=== PATIENT | male | born 1955 | race Caucasian/White ===

== ENCOUNTER 2024-07-12 06:15 | Day surgery (SDC) | payer OTHER, SELFPAY ==
[2024-07-12 09:05] LABS: Glucose - Point of Care 147 mg/dl (70-99)
== END 2024-07-12 10:06 | disposition home or self-care (01) ==
LOC: GI 06:15
PROVIDERS: ATTENDING PHYSICIAN Internal Medicine
PROC: 0DB58ZX Excision of Esophagus, Via Natural or Artificial Opening Endoscopic, Diagnostic (ICD-10-PCS; 2024-07-12)
PROC: 0D758ZZ Dilation of Esophagus, Via Natural or Artificial Opening Endoscopic (ICD-10-PCS; 2024-07-12)
PROC: 0DB68ZX Excision of Stomach, Via Natural or Artificial Opening Endoscopic, Diagnostic (ICD-10-PCS; 2024-07-12)
DX: K22.2 Esophageal obstruction (principal); K29.70 Gastritis, unspecified, without bleeding
CPT/HCPCS: 43239; 43249; 88305; 82962; 88342

== ENCOUNTER → 2024-10-31 08:58 | Outpatient (REF) | payer OTHER, SELFPAY | LOC: HWRAD 08:58 | PROVIDERS: ATTENDING PHYSICIAN Family Medicine | DX: F17.210 Nicotine dependence, cigarettes, uncomplicated (principal) | CPT/HCPCS: 71271 ==